=== PATIENT | female | born 1990 | race Caucasian/White ===

== ENCOUNTER 2019-06-03 15:47 | Outpatient (CLI) | payer OTHER, SELFPAY ==
[2019-06-03 16:16] LABS: Influenza Control Valid (Valid)
== END 2019-06-03 15:48 | disposition home or self-care (01) ==
PROVIDERS: PCP Internal Medicine; Visit Provider Nurse Practitioner Family
DX: J06.9 Acute upper respiratory infection, unspecified (principal)
CPT/HCPCS: 87804

== ENCOUNTER 2020-05-26 11:04 | Outpatient (CLI) | payer OTHER, SELFPAY ==
[2020-06-01 15:42] LABS: Gliadin AB, IgG 6 Units (<20); Reticulin IgA Negative (Negative); TTG IGA AB 1 U/mL (<4)
== END 2020-05-26 11:05 | disposition home or self-care (01) ==
LOC: CHSLAB 11:07
PROVIDERS: PCP Internal Medicine
DX: R10.13 Epigastric pain (principal); K21.9 Gastro-esophageal reflux disease without esophagitis
CPT/HCPCS: 36415; 83516; 86255

== ENCOUNTER 2020-05-30 14:39 | Outpatient (NON) | payer OTHER, SELFPAY ==
[2020-06-02 05:10] LABS: H pylori Ag Stool Not Detected (Not Detected)
== END 2020-05-30 14:40 ==
LOC: CHSLAB 14:42
PROVIDERS: PCP Internal Medicine
DX: R10.13 Epigastric pain (principal)
CPT/HCPCS: 87338

== ENCOUNTER 2022-01-07 08:28 | Outpatient (CLI) | payer OTHER, SELFPAY ==
--- NOTE | ~2022-01-07 | XR_ITS ---
EXAM: XR mandible min 4V DATE: 01/07/2022 09:05 HISTORY: CHRONIC RIGHT JAW PAIN/ EAR PAIN S/P DENTAL WORK . COMPARISON: None available. FINDINGS: Orbits are intact and symmetric. Aerated spaces are clear. Temporomandibular joints are gr ossly normal. Dental fillings present. No lytic or blastic lesions. No fracture or dislocation. IMPRESSION: Normal mandible radiograph findings. MRI of the temporomandibular joints may be helpful i f symptoms refer to the TMJs. Consider dental consultation. Reviewed, dictated and finalized at location K. IMPRESSION: Normal mandible radiograph findings. MRI of the temporomandibular j oints may be helpful if symptoms refer to the TMJs. Consider dental consultatio n.
== END 2022-01-07 08:29 | disposition home or self-care (01) ==
LOC: CHSIMG 08:31
PROVIDERS: PCP Internal Medicine; Visit Provider Internal Medicine
DX: R68.84 Jaw pain (principal); H92.01 Otalgia, right ear
CPT/HCPCS: 70110

== ENCOUNTER 2022-11-09 20:13 | Emergency (ER) | payer OTHER, SELFPAY ==
--- NOTE | ~2022-11-09 | XR_ITS ---
EXAM: XR wrist RT min 3V, XR hand RT min 3V DATE: 11/09/2022 20:45 (accession [id number]), 11/09/2022 20:44 (accession [id number]) HISTORY: Wrist pain and swelling. NKI. . COMPARISON: None available. FINDINGS: Decreased mineralization. No fracture or dislocation. No lytic or blastic lesion. Joint sp aces are maintained. No erosion or periosteal change. Soft tissues within normal limits. IMPRESSION: Osteopenia. No acute osseous finding in the right hand or wrist. Reviewed, dictated and finalized at location K. IMPRESSION: Osteopenia. No acute osseous finding in the right hand or wrist.
[2022-11-09 20:16] VITALS: BP 129/85; PULSE 98; RESP 19; TEMP 37.5; O2SAT 97
--- NOTE | 2022-11-09 20:31 | ED.UPPEXIN ---
HPI - Extremity Injury (Upper) General Chief Complaint: Extremity Injury, Upper Stated Complaint: R Wrist Time Seen by Provider: 11/09/22 20:30 Source: patient and family Mode of arrival: ambulatory Limitations: physical limitation History of Present Illness HPI narrative: 32-year-old female with history of developmental delay presents to the emergency room with mom due to noticing severe excruciating pain and swelling in her right wrist dorsal surface and right hand dorsal surface starting today. Patient denied any trauma but thought that she might have said on her hand for a long period of time. Patient is a poor historian. Any movement would cause pain. complaint: injury to: right Onset (ago): hour(s) Other Extremity Injury: Right: hand and wrist Other injuries: none Place: home Severity: severe Severity scale (1-10): 10 Relieving factors: none and cold therapy Exacerbating factors: none Associated symptoms: denies other symptoms Treatments prior to arrival: cold therapy Related Data Home Medications Medication Instructions Recorded Confirmed No Home Medications 01/30/22 01/30/22 Allergies Allergy/AdvReac Type Severity Reaction Status Date / Time No Known Allergies Allergy Unverified 11/09/22 20:35 Review of Systems Constitutional: Constitutional: Reports as per HPI and Reports no additional constitutional complaints Eyes: Eyes: Reports as per HPI and Reports no additional eye complaints ENT: Reports system reviewed and no additional complaints, except as documented and Reports as per HPI Cardiovascular: Cardiovascular: Reports as per HPI and Reports no additional cardiovascular complaints Respiratory: Respiratory: Reports as per HPI and Reports no additional respiratory complaints Gastrointestinal: Gastrointestinal: Reports as per HPI and Reports no additional gastrointestinal complaints Genitourinary: Genitourinary: Reports as per HPI Musculoskeletal: Musculoskeletal: Reports no additional musculoskeletal complaints and Reports as per HPI Integumentary/Breasts: Skin/Breast: Reports system reviewed and no additional complaints, except as docu and Reports as per HPI Neurologic: Reports system reviewed and no additional complaints, except as documented and Reports as per HPI Psychiatric: Psychiatric: Reports no additional psychiatric complaints and Reports as per HPI Endocrine: Endocrine: Reports no additional endocrine complaints and Reports as per HPI Hematologic/Lymphatic: Hematologic/Lymphatic: Reports no additional hematologic/lymphatic complaints and Reports as per HPI Allergic/Immunologic: Allergic/Immunologic: Reports no additional allergic/immunologic complaints and Reports as per HPI [facility] Family History Family History (Updated 01/30/22 @ 10:19 by DEBORAH Craig) Mother Migraine Hyperlipemia Anxiety Grandparent Hypertension Diabetes mellitus Hyperlipemia GERD (gastroesophageal reflux disease) Coronary artery disease Dementia Osteoarthritis Father Anxiety Malignant neoplasm of prostate Social History Social History (Updated 01/30/22 @ 10:12 by DEBORAH Craig) Smoking status: Never smoker Alcohol intake: never Substance use: never Living arrangements: with family Exam Const: General: healthy appearing and no acute distress Nutritional Appearance: well nourished Limitations: behavioral limitations and physical limitations HENMT: Head: normal to inspection Ears: external ears normal Face/Nose/Sinus: Normal external nose present Face and sinus: normal facial exam Mouth: Yes Normal oral and palatal mucosa present Eyes: Conjunctivae: conjunctivae normal Pupils: Equal, round and reactive pupils present Resp: Effort & Inspection: normal respiratory effort Auscultation: clear to auscultation bilaterally Cardio: Rate: regular rate Rhythm: regular rhythm GI: GI Palp: Yes Soft to palpation Auscultation: normal bowel sounds Skin:
[2022-11-09] MEDS: KETOROLAC 30 MG/ML VIAL (*BKC) IM (22:10)
[2022-11-09 22:17] VITALS: BP 125/85; PULSE 76; RESP 18; O2SAT 99
== END 2022-11-09 22:25 | disposition home or self-care (01) ==
PROVIDERS: Emergency Provider Emergency Medicine; PCP Internal Medicine
DX: M79.89 Other specified soft tissue disorders (principal); M25.531 Pain in right wrist
CPT/HCPCS: 73110; 73130; 96372; 99283

== ENCOUNTER 2024-10-06 11:45 | Outpatient (CLI) | payer OTHER, SELFPAY ==
[2024-10-06 12:25] LABS: Hemoglobin 12.3 g/dL (12.0-15.0); Mean Corpuscular HGB Conc 31.5 g/dL (32-36); Mean Corpuscular Hemoglobin 25.2 pg (27.0-31.0); Mean Corpuscular Volume 79.9 fL (78.0-102.0); Mean Platelet Volume 9.9 fl (9.2-11.8); Platelet Count Result 439 K/mm3 (150-420); Red Blood Count 4.88 M/mm3 (4.20-5.40); Red Cell Distribution Width 14.2 % (11.6-14.4); White Blood Count 13.2 K/mm3 (4.8-10.8)
[2024-10-06 12:29] LABS: Add Urine Microscopic? YES; Appearance Urine Clear (Clear); Bilirubin Urine Negative (Negative); Blood Urine Negative (Negative); Color Urine Yellow (Yellow); Glucose Urine UA Negative (Negative); Ketones Urine Negative (Negative); Leukocyte Esterase Ur Negative (Negative); Nitrate Urine Negative (Negative); Protein Urine Trace (Negative); Urobilinogen Urine 0.2 mg/dL (0.2-1.0)
[2024-10-06 12:34] LABS: RBC Urine None seen /hpf (0-2); Squamous Epithelial Cell Urine Moderate /hpf (Few); WBC Urine 0-3 /hpf (0-3)
[2024-10-06 12:35] LABS: Bacteria Urine Trace /hpf; Mucus Urine Moderate /lpf
[2024-10-06 12:45] LABS: Alanine Aminotransferase 16 U/L (6-35); Albumin Level 4.2 g/dL (3.5-5.1); Alkaline Phosphatase 110 U/L (38-126); Amylase 73 U/L (30-110); Anion Gap 6 mmol/L (4-12); Aspartate Amino Transferase 26 U/L (14-36); Bilirubin,Total 0.6 mg/dL (0.2-1.3); Blood Urea Nitrogen 14 mg/dL (7-17); Calcium 9.1 mg/dL (8.4-10.2); Carbon Dioxide 25 mmol/L (22-30); Chloride 106 mmol/L (98-107); Estimated Glomerular Filt Rate > 60; Glucose 104 mg/dL (65-110); Lipase 108 U/L (23-300); Osmolality Calculated 284 mOsm/kg (285-295); Potassium 4.1 mmol/L (3.4-5.0); Sodium 137 mmol/L (137-145); Total Protein 7.2 g/dL (6.3-8.2)
[2024-10-06 16:07] LABS: Beta HCG Quantitative < 2.39 mIU/ML
== END 2024-10-06 11:46 | disposition home or self-care (01) ==
PROVIDERS: PCP Internal Medicine; Visit Provider Internal Medicine
DX: R11.0 Nausea (principal); R11.10 Vomiting, unspecified; R55 Syncope and collapse; R94.31 Abnormal electrocardiogram [ECG] [EKG]
CPT/HCPCS: 36415; 80053; 81001; 82150; 83690; 84443; 84702; 85027

== ENCOUNTER 2024-10-08 08:21 | Outpatient (CLI) | payer OTHER, SELFPAY ==
--- NOTE | ~2024-10-08 | US_ITS ---
RIGHT UPPER QUADRANT ABDOMINAL ULTRASOUND (Doppler ultrasound interrogation techniques used as needed for this exam.) Ordering provider: Eric Lozano MD History: . nausea, vomiting . Comparison: None. FINDINGS: PANCREAS: Normal echotexture and size of the visualized portions. PORTAL VEIN: Hepatopedal flow demonstrated. LIVER: Normal size and echotexture. No focal hepatic lesions or perihepatic fluid collections are patrick ntified. BILIARY DUCTS: No intra or extrahepatic biliary dilation. Common bile duct measures 3.6 mm in diamete r which is normal for patient's age. GALLBLADDER: Normal. No stones, sludge, gallbladder wall thickening or pericholecystic fluid. Negati ve sonographic Palacios's sign. FREE FLUID: None visualized within the upper abdomen. IMPRESSION: normal right upper quadrant ultrasound. Reviewed, dictated and finalized at location A.
== END 2024-10-08 08:22 | disposition home or self-care (01) ==
LOC: CHSIMG 08:23
PROVIDERS: PCP Internal Medicine; Visit Provider Internal Medicine
DX: R11.2 Nausea with vomiting, unspecified (principal); R55 Syncope and collapse
CPT/HCPCS: 76705

== ENCOUNTER 2024-11-15 00:28 | Day surgery (SDC) | payer OTHER, SELFPAY ==
[2024-11-02 14:24] VITALS: BMI 28.3
--- OUTSIDE RECORDS SUMMARY | 2024-11-15 00:31 | XMS_ITS | Clinical Summary ---
Author Organization [facility] Address [address] [place] [id number] Care Team Providers Care Rn Utilization Management Um Name Role Phone Unavailable Primary Care Provider Unavailabl e Social History Tobacco Use Types Packs/Day Years Used Date Smoking Tobacco: Never Assessed Comments Unknown Sex and Gender Information Value Date Recorded Sex Assigned at Not on file Legal Sex Female 5:21 PM CDT Gender Identity Not on file Sexual Orientation Not on file Plan of Treatment Health Maintenance Due Date Last Done Comments Cervical Cancer Screening Pa p Smear (Age 30 to 64) Every 3 Years 1988 Annual Physical 10/18/1991 Hepatitis C 2006 DTaP, Tdap and Td Vaccines ( 1 - Tdap) 10/18/2007 Hepatitis B Vaccines (1 of 3 - 19+ 3-dose series) 10/18/2007 HPV Vaccines (1 - 3-dose SCD M series) 10/18/2015 Cervical Cancer Screening Pa p with HPV Testing (Age 30 to 64) Every 5 Years 2018 Cervical Cancer Screening with HPV 2018 COVID-19 Vaccine ( - 2023-2 5 season) 2023 Meningococcal B Vaccine Aged Out No l onger eligible based on patient's age to complete this topic Meningococcal Vaccine Aged Out No anabelle chelsie eligible based on patient's age to complete this topic Pneumococcal Vaccine: Pediat rics (0 to 5 Years) and At-Risk Patients (6 to 49 Years) Aged Out No longer eligible b ased on patient's age to complete this topic RSV Immunizations Under 20 Months Aged Out No longer eligible based on patient's age to complete this topic
[2024-11-15 07:40] VITALS: BP 102/67; PULSE 66; RESP 16; TEMP 36.1; O2SAT 100; BMI 27.8
[2024-11-15 07:56] LABS: BEDSIDEPREGUCG Negative (Negative)
[2024-11-15] MEDS: LACTATED RINGERS 1,000 ML 150 ML IV CONT (08:03)
--- NOTE | 2024-11-15 08:40 | SUR.PREOP ---
Pt states she has a history of passing out. Had an EKG done recently that came back abnormal. Pt is scheduled for an ECHO today 1430 at [facility]. EGD is now canceled for today until she is cleared with cardiac. Went over discharge instructions with the patient & her mom. Instructed them to call the office to reschedule.
== END 2024-11-15 08:45 | disposition home or self-care (01) ==
PROVIDERS: Anesthesiology; PCP Internal Medicine; Visit Provider Surgery
PROC: 0DJ08ZZ Inspection of Upper Intestinal Tract, Via Natural or Artificial Opening Endoscopic (ICD-10-PCS; principal; 2024-11-15 09:00)
DX: R55 Syncope and collapse (principal); R94.31 Abnormal electrocardiogram [ECG] [EKG]
CPT/HCPCS: 99212; G0463; J7120

== ENCOUNTER 2024-11-29 09:54 | Outpatient (CLI) | payer OTHER, SELFPAY ==
--- NOTE | 2024-11-29 09:58 | EST_ITS ---
Patient Info Name: Nicky Parker Age: 34 years : 1990 Gender: Female Ht: 61 in Wt: 133 lbs BSA: 1.62 m2 HR: 61 bpm BP: 125 / 74 mmHg Heart Rhythm: Sinus Rhythm Technical Quality: Good Exam Date: 11/29/2024 9:58 AM Patient Status: O Admit Date: 11/29/2024 Exam Type: CA stress test treadmill A treadmill exercise stress test was performed. Staff Attending Provider: Denton Bateman DO Summary 1. 1. Negative Cheo exercise stress test for ischemic ST changes by ECG criteria. 2. 2. Good functional capacity, achieving 10 METs of workload. 3. 3. Appropriate HR response to exercise. 4. 4. Appropriate HR recovery at 1 minute post exercise. 5. 5. No imaging with stress testing. History/Risk Factors Dyslipidemia: Yes Protocol: Cheo Stress ECG Details Stage: REST Duration (min): 1 min : 16 sec Speed (mph): 0.0 Grade (%): 0 HR (bpm): 68 SBP (mmHg): 125 DBP (mmHg): 74 METS: --- Stage: REST Duration (min): 2 min : 55 sec Speed (mph): 0.0 Grade (%): 0 HR (bpm): 78 SBP (mmHg): 125 DBP (mmHg): 74 METS: --- Stage: STAGE 1 Duration (min): 1 min : 0 sec Speed (mph): 1.7 Grade (%): 10 HR (bpm): 99 SBP (mmHg): 125 DBP (mmHg): 74 METS: --- Stage: STAGE 1 Duration (min): 2 min : 0 sec Speed (mph): 1.7 Grade (%): 10 HR (bpm): 113 SBP (mmHg): 125 DBP (mmHg): 74 METS: --- Stage: STAGE 1 Duration (min): 3 min : 0 sec Speed (mph): 1.7 Grade (%): 10 HR (bpm): 117 SBP (mmHg): 124 DBP (mmHg): 50 METS: --- Stage: STAGE 2 Duration (min): 1 min : 0 sec Speed (mph): 2.5 Grade (%): 12 HR (bpm): 127 SBP (mmHg): 124 DBP (mmHg): 50 METS: --- Stage: STAGE 2 Duration (min): 2 min : 0 sec Speed (mph): 2.5 Grade (%): 12 HR (bpm): 132 SBP (mmHg): 124 DBP (mmHg): 50 METS: --- Stage: STAGE 2 Duration (min): 3 min : 0 sec Speed (mph): 2.5 Grade (%): 12 HR (bpm): 136 SBP (mmHg): 128 DBP (mmHg): 73 METS: --- Stage: STAGE 3 Duration (min): 1 min : 0 sec Speed (mph): 3.4 Grade (%): 14 HR (bpm): 150 SBP (mmHg): 128 DBP (mmHg): 73 METS: --- Stage: STAGE 3 Duration (min): 2 min : 0 sec Speed (mph): 3.4 Grade (%): 14 HR (bpm): 157 SBP (mmHg): 128 DBP (mmHg): 73 METS: --- Stage: STAGE 3 Duration (min): 3 min : 0 sec Speed (mph): 3.4 Grade (%): 14 HR (bpm): 164 SBP (mmHg): 128 DBP (mmHg): 73 METS: --- Stage: RECOVERY Duration (min): 0 min : 59 sec Speed (mph): 0.0 Grade (%): 0 HR (bpm): 146 SBP (mmHg): 128 DBP (mmHg): 73 METS: --- Stage: RECOVERY Duration (min): 1 min : 59 sec Speed (mph): 0.0 Grade (%): 0 HR (bpm): 103 SBP (mmHg): 147 DBP (mmHg): 62 METS: --- Stage: RECOVERY Duration (min): 2 min : 59 sec Speed (mph): 0.0 Grade (%): 0 HR (bpm): 104 SBP (mmHg): 135 DBP (mmHg): 72 METS: --- Stage: RECOVERY Duration (min): 3 min : 59 sec Speed (mph): 0.0 Grade (%): 0 HR (bpm): 92 SBP (mmHg): 158 DBP (mmHg): 69 METS: --- Stage: RECOVERY Duration (min): 4 min : 59 sec Speed (mph): 0.0 Grade (%): 0 HR (bpm): 100 SBP (mmHg): 158 DBP (mmHg): 69 METS: --- Stage: RECOVERY Duration (min): 5 min : 59 sec Speed (mph): 0.0 Grade (%): 0 HR (bpm): 101 SBP (mmHg): 170 DBP (mmHg): 64 METS: --- Stage: RECOVERY Duration (min): 6 min : 59 sec Speed (mph): 0.0 Grade (%): 0 HR (bpm): 109 SBP (mmHg): 170 DBP (mmHg): 64 METS: --- Stage: RECOVERY Duration (min): 7 min : 22 sec Speed (mph): 0.0 Grade (%): 0 HR (bpm): 102 SBP (mmHg): 125 DBP (mmHg): 60 METS: --- Rest HR: 78 bpm Peak HR: 164 bpm Rest Sys BP: 125 mmHg Peak Sys BP: 170 mmHg Max Pred HR: 184 bpm % Max Pred HR: 89 % Target HR: 156 bpm Max RPP: 27,880 bpm*mmHg Mason Score: -2 Target HR Summary: Test terminated after reaching target heart rate (85% max predicted) BP Response: Normal blood pressure response Termination Reason: faster walking Cardiac Symptoms: None Max ST Seg Deviation: -2.10 mm Total Time: 9 min : 0 sec Rest Lewis BP: 74 mmHg Peak Lewis BP: 64 mmHg Angina Score: None Total METS: 10.3 Resting ECG Sinus rhythm with short MT interval and nonspecific ST/T wave abnormality. Stress ECG No abnormal ST/T wave changes with exercise. Arrhythmias None. Report Signatures
--- OUTSIDE RECORDS SUMMARY | 2024-11-29 10:03 | XMS_ITS | Clinical Summary ---
Author Organization [facility] Address [address] [place] [address] Care Team Providers Care Pig Caster Name Role Phone Unavailable Primary Care Provider [...]
== END 2024-11-29 09:55 | disposition home or self-care (01) ==
LOC: CHSCARD 09:55
PROVIDERS: PCP Internal Medicine; Visit Provider Internal Medicine Cardiovascular Disease
DX: R94.31 Abnormal electrocardiogram [ECG] [EKG] (principal)
CPT/HCPCS: 93017

== ENCOUNTER 2024-12-29 01:19 | Day surgery (SDC) | payer OTHER, SELFPAY ==
[2024-12-15 13:45] VITALS: BMI 27.0
--- NOTE | 2024-12-29 10:33 | P.PNAN_ITS ---
Anes - Initial Pre Proc Eval Procedure: Operation Date: 12/29/24 11:30 Proposed Procedures p Esophagogastroduodenoscopy - Diony Heck DO Date/Time: 12/29/24 10:33 Surgeon: Diony Heck DO Pre Op Diagnosis: Sliding hiatal hernia with GERD dysplasia Patient Data Age: 34 Gender: F Height: 1.55 m Weight: 64.9 kg Allergies Allergy/AdvReac Type Severity Reaction Status Date / Time No Known Allergies Allergy Verified 12/29/24 10:27 Home Medications ?Medication ?Instructions ?Recorded ?Confirmed ?Type calcium carbonate (Tums) 200 mg PO BID 11/01/2412/29 History famotidine 40 mg/5 mL (8 mg/mL) 40 mg PO Q12H PRN acid reflux 11/02/24 12/29/24 History oral suspension clonazepam 0.5 mg tablet 0.5 mg PO DAILY 11/15/2402/12 History Patient hx anesthesia problems: none Family hx anesthesia problems: none Results Review: All pre-operative results and documents have been reviewed as part of the pre- operative evaluation. [facility] Past Medical History Medical History (Updated 12/29/24 @ 10:59 by Rob Hart DO) Developmental delay, borderline Anxiety TMJ (temporomandibular joint disorder) GERD (gastroesophageal reflux disease) Hiatal hernia Family History Family History (Updated 01/30/22 @ 10:19 by DEBORAH Craig) Mother Migraine Hyperlipemia Anxiety Grandparent Hypertension Diabetes mellitus Hyperlipemia GERD (gastroesophageal reflux disease) Coronary artery disease Dementia Osteoarthritis Father Anxiety Malignant neoplasm of prostate Social History Social History (Updated 01/30/22 @ 10:12 by DEBORAH Craig) Smoking status: Never smoker Alcohol intake: never Substance use: never Substance use type: does not use Living arrangements: with family Spiritual care concerns: No Anes - Eval Final PreProcedure Day of Procedure 12/29/24 10:33 Patient weight: overweight Heart: regular rate and rhythm Lungs: clear to auscultation Airway: Mallampati scale class II Neurological: alert and oriented Last oral intake: >/= 8 hours ASA classification: III Emergent: no Anesthetic plan: proceed Anesthesia type and monitoring: general GIVS and standard monitoring Results Review: All pre-operative results and documents have been reviewed as part of the pre- operative evaluation. Informed Consent: The patient's anesthetic plan and its attendant risks and benefits were discussed with the patient/family/POA. Questions were solicited and answers provided to the satisfaction of the patient/family/POA.
[2024-12-29] MEDS: LACTATED RINGERS 1,000 ML 150 ML IV CONT (10:37)
[2024-12-29 10:38] VITALS: BP 120/71; PULSE 76; RESP 14; TEMP 36.7; O2SAT 100
[2024-12-29 10:44] LABS: BEDSIDEPREGUCG Negative (Negative)
--- NOTE | 2024-12-29 11:50 | PM.IMHP ---
H&P: HPI History of Present Illness Date/Time: 12/29/24 11:50 Chief Complaint: GERD, hiatal hernia Narrative: this is a 34-year-old woman who presents for EGD. She has been experiencing frequent acid reflux symptoms and the occasional nausea vomiting. She denies any hematemesis she denies difficulty swallowing liquids. Review of Systems Review of Systems: All systems reviewed & are unremarkable except as noted in HPI and below Constitutional: Constitutional: Denies chills, Denies fever(s), Denies headache(s) and Denies weight loss Eyes: Eyes: Denies change in vision ENT: Denies dizziness, Denies headache(s), Denies neck mass and Denies throat swelling Cardiovascular: Cardiovascular: Denies chest pain, Denies lightheadedness and Denies dyspnea Respiratory: Respiratory: Denies cough, Denies dyspnea and Denies wheezing Gastrointestinal: Gastrointestinal: Denies abdominal pain, Denies change in bowel habits, Denies nausea and Denies vomiting Genitourinary: Genitourinary: Denies hematuria and Denies dysuria Musculoskeletal: Musculoskeletal: Reports as per HPI Integumentary/Breasts: Skin/Breast: Reports as per HPI Neurologic: Denies dizziness and Denies headache(s) Allergic/Immunologic: Allergic/Immunologic: Denies throat swelling and Denies wheezing [facility] Past Medical History Medical History (Updated 12/29/24 @ 11:51 by Diony Heck DO) Developmental delay, borderline Anxiety TMJ (temporomandibular joint disorder) GERD (gastroesophageal reflux disease) Hiatal hernia Family History Family History (Updated 01/30/22 @ 10:19 by DEBORAH Craig) Mother Migraine Hyperlipemia Anxiety Grandparent Hypertension Diabetes mellitus Hyperlipemia GERD (gastroesophageal reflux disease) Coronary artery disease Dementia Osteoarthritis Father Anxiety Malignant neoplasm of prostate Social History Social History (Updated 01/30/22 @ 10:12 by DEBORAH Craig) Smoking status: Never smoker Alcohol intake: never Substance use: never Substance use type: does not use Living arrangements: with family Spiritual care concerns: No Meds Home Medications and Allergies Home Medications ?Medication ?Instructions ?Recorded ?Confirmed ?Type calcium carbonate (Tums) 200 mg PO BID 11/01/24 12/29/24 History famotidine 40 mg/5 mL (8 mg/mL) 40 mg PO Q12H PRN acid reflux 11/02/24 12/29/24 History oral suspension clonazepam 0.5 mg tablet 0.5 mg PO DAILY 11/15/24 12/29/24 History Allergies Allergy/AdvReac Type Severity Reaction Status Date / Time No Known Allergies Allergy Verified 12/29/24 10:27 Vital Signs Vital Signs - 24 hr 12/29/24 10:38 Temperature 98.1 F Pulse Rate 76 Respiratory Rate 14 Blood Pressure 120/71 Pulse Oximetry 100 Oxygen Delivery Room Air Exam Const: General: no acute distress and alert Orientation/consciousness: patient oriented x3 HENMT: Head: normocephalic and atraumatic Ears: hearing grossly normal bilaterally Face/Nose/Sinus: Normal nares present Mouth: Yes Normal oral and palatal mucosa present Eyes: Periorbital: periorbital findings normal Sclera: sclerae normal EOM: EOMs intact bilaterally Neck: Neck: normal visual inspection, no lymphadenopathy and trachea midline Chest: Chest palpation & inspection: normal inspection of the chest Resp: Effort & Inspection: normal respiratory effort Auscultation: clear to auscultation bilaterally Cardio: Jugular venous distension: no JVD Rate: regular rate Rhythm: regular rhythm Heart sounds: S1 normal heart sound present and S2 normal heart sound present Peripheral pulses: Peripheral pulses 2+ throughout GI: Inspection: normal to inspection GI Palp: Yes Soft to palpation, No Tenderness to palpation present (GI), No Guarding due to palpation present (GI) and No Rebound tenderness present Percussion: Yes normal to percussion Auscultation: normal bowel sounds : General: Yes no CVA tenderness Back/Spine/Pelvis: Back: no CVA tenderness Neuro: General: patient oriented x3, no focal motor deficits and CN's II-XI intact bilaterally Cognition (Neuro): normal cognition Speech: normal speech Motor exam (neuro): 5/5 motor strength present throughout Extrem: General: capillary refill normal and no clubbing, cyanosis or edema Assessment and Plan Assessment and plan (1) GERD (gastroesophageal reflux disease): Code(s): K21.9 - Gastro-esophageal reflux disease without esophagitis Status: Acute Assessment and Plan: I have recommended EGD. I have discussed the procedure, risks, benefits, and alternatives. Questions were answered. Patient is agreeable to proceed. (2) Hiatal hernia: Code(s): K44.9 - Diaphragmatic hernia without obstruction or gangrene Status: Acute
--- NOTE | 2024-12-29 12:05 | S_PTH ---
PATIENT: Nicky Parker LOC: [facility] U#:[id number] AGE/SX: 34/F ROOM: RE12/29/[address]: Diony Heck DO : 1990 BED: DIS: 12/29/2024 SPEC #: [id number] RECD: 12/29/24 13:10 STATUS: LYNN RE #: [id number] MADISYN: 12/29/24 12:[address]: Diony Heck DEPT: [facility] Surgical RECD BY: Shruthi Forrester ENTERED: 12/29/24 13:11 SP TYPE: Surgical OTHR DR: Eric Lozano MD Tissues: A - Gastric Biopsy Procedures: Hematoxylin and Eosin Stain Gross and Microscopic Level 4
[2024-12-29 12:10] VITALS: BP 87/51; PULSE 63; RESP 15; O2SAT 100
[2024-12-29 12:20] VITALS: BP 110/64; PULSE 69; RESP 24; O2SAT 100
== END 2024-12-29 12:40 | disposition home or self-care (01) ==
PROVIDERS: Anesthesiology; PCP Internal Medicine; Visit Provider Surgery
PROC: 0DJ08ZZ Inspection of Upper Intestinal Tract, Via Natural or Artificial Opening Endoscopic (ICD-10-PCS; CPT 43235; principal; 2024-12-29 11:30)
DX: K21.9 Gastro-esophageal reflux disease without esophagitis (principal); K29.50 Unspecified chronic gastritis without bleeding; K44.9 Diaphragmatic hernia without obstruction or gangrene; F41.9 Anxiety disorder, unspecified; R62.50 Unspecified lack of expected normal physiological development in childhood; M26.609 Unspecified temporomandibular joint disorder, unspecified side; Z80.49 Family history of malignant neoplasm of other genital organs; Z82.49 Family history of ischemic heart disease and other diseases of the circulatory system
CPT/HCPCS: 43235; 88305; J2003; J2704; J7120

== ENCOUNTER 2025-01-18 12:22 | Outpatient (CLI) | payer OTHER, SELFPAY ==
--- OUTSIDE RECORDS SUMMARY | 2025-01-18 12:27 | XMS_ITS | Clinical Summary ---
Author Organization [facility] Address [address] [place] [id number] Care Team Providers Care Surveillance Officer Name Role Phone Unavailable Primary Care Provider [...] COVID-19 Vaccine ( - 2023-2 5 season) 2024 Meningococcal B Vaccine Aged Out No l [...]
--- NOTE | 2025-01-18 12:31 | ECHO_ITS ---
Patient Info Name: Nicky Parker Age: 34 years : 1990 Gender: Female Ht: 61 in Wt: 140 lbs BSA: 1.67 m2 HR: 68 bpm BP: 110 / 72 mmHg Technical Quality: Good Exam Date: 01/18/2025 12:43 PM Patient Status: O Admit Date: 01/18/2025 Exam Type: CA echo doppler color flow Complete two-dimensional, color flow and Doppler transthoracic echocardiogram is performed. Sewing Machine Operator Floorperson: Thania Gordon Attending Provider: Eric Lozano MD Summary 1. Complete two-dimensional, color flow and Doppler transthoracic echocardiogram is performed. 2. Left ventricular chamber dimension is normal. 3. Left ventricular systolic function is normal, estimated at 60-65. 4. The left ventricular diastolic function is normal. 5. E/e' 5 is not elevated. History/Risk Factors Dyslipidemia: Yes Left Ventricle E/e' 5 is not elevated. Left ventricular chamber dimension is normal. Left ventricular systolic function is normal, estimated at 60-65. The left ventricular diastolic function is normal. Right Ventricle Right ventricular chamber dimension is normal. Right ventricular systolic function is normal and with normal TAPSE 1.9 cm. Left Atria Left atrial chamber dimension is normal. Right Atria Right atrial chamber dimension is normal. Aortic Valve The aortic valve is trileaflet. There is no aortic valve stenosis. There is no aortic valve regurgitation. Pulmonic Valve There is no pulmonic regurgitation. Mitral Valve There is no mitral valve stenosis. There is no mitral valve regurgitation. Tricuspid Valve There is no tricuspid valve regurgitation. Pericardium/Pleural There is no pericardial effusion. Inferior Vena Cava Normal inferior vena cava with >50% collapse upon inspiration consistent with normal right atrial pressure, 5 mmHg. Aorta The aortic root size at the sinus of Valsalva is normal. Left Ventricular Outflow Tract Name Value Normal LVOT 2D LVOT Diameter 1.5 cm LVOT Doppler LVOT Peak Velocity 93 cm/s LVOT Peak Gradient 3 mmHg LVOT Mean Gradient 2 mmHg LVOT VTI 20 cm LVOT Stroke Volume 35 ml LVOT CO 2.4 l/min LVOT CI 1.4 l/min/m2 Pulmonic Valve Name Value Normal RVOT Doppler RVOT Peak Velocity 55 cm/s RVOT Peak Gradient 1 mmHg PV Doppler PV Peak Velocity 90 cm/s PV Peak Gradient 3 mmHg Mitral Valve Name Value Normal MV Diastolic Function MV E Peak Velocity 62 cm/s MV A Peak Velocity 55 cm/s MV E/A 1.1 MV Decel Time (PW) 212 ms MV Annular TDI MV E/e' (Septal) 5.4 MV E/e' (Lateral) 4.7 MV E/e' (Average) 5.1 Tricuspid Valve Name Value Normal Estimated PAP/RSVP RA Pressure 5 mmHg <=5 Aortic Valve Name Value Normal AV Doppler AV Peak Velocity 109 cm/s AV Peak Gradient 5 mmHg AV Area (Cont Eq [place]) 1.5 cm2 AV DI (Milton) 0.86 AV Regurgitation 2D LVOT Area 1.8 cm2 Ventricles Name Value Normal LV Dimensions 2D/MM IVS Diastolic Thickness (2D) 0.7 cm 0.6-1.0 LVID Diastole (2D) 4.4 cm 3.8-5.2 LVIW Diastolic Thickness (2D) 0.7 cm 0.6-0.9 LVID Systole (2D) 2.8 cm 2.2-3.5 LVOT Diameter 1.5 cm LV Mass (2D Cubed) 91.74 g 67.00-162.00 LV Mass Index (2D Cubed) 55 g/m2 43-95 Relative Wall Thickness (2D) 0.30 <=0.42 LV Fractional Shortening/Ejection Fraction 2D/MM LV Fractional Shortening (2D) 36 % 27-45 LV EF (2D [place]) 65 % LV Diastolic Volume (4C MOD) 65 ml LV EF (4C MOD) 58 % LV Diastolic Volume (2C MOD) 65 ml LV EF (2C MOD) 64 % LV Diastolic Volume (BP MOD) 65 ml 46-106 LV Diastolic Volume Index (BP MOD) 39 ml/m2 29-61 LV Systolic Volume (BP MOD) 26 ml 14-42 LV Systolic Volume Index (BP MOD) 15 ml/m2 8-24 LV EF (BP MOD) 61 % 54-74 LV Diastolic Length (4C) 7.2 cm LV Systolic Length (4C) 5.8 cm LV Stroke Volume (4C MOD) 38 ml Atria Name Value Normal LA Dimensions LA Volume (4C A-L) 31 ml LA Volume (BP A-L) 28 ml RA Dimensions RA Systolic Major Wells Length (4C) 3.9 cm 2.2-2.8 RA Area (4C) 10.3 cm2 <=18.0 Report Signatures
== END 2025-01-18 12:23 | disposition home or self-care (01) ==
LOC: CHSIMG 12:24
PROVIDERS: PCP Internal Medicine; Visit Provider Internal Medicine
DX: R94.31 Abnormal electrocardiogram [ECG] [EKG] (principal)
CPT/HCPCS: 93306